=== PATIENT | female | born 1935 | race Caucasian/White ===

== ENCOUNTER 2021-01-17 05:09 | Emergency (ER) | payer MEDICARE, OTHER, SELFPAY ==
[2021-01-17 05:11] VITALS: BP 130/64; PULSE 104; RESP 18; TEMP 36.7; O2SAT 100; BMI 21.4
--- NOTE | 2021-01-17 05:18 | RAD_ITS ---
STUDY: X-RAY CHEST REASON FOR EXAM: Female, 85 years old. Sob TECHNIQUE: Single AP portable view of the chest. COMPARISON: None. FINDINGS: There is a left upper lobe masslike density measuring 5.0 x 2.0 cm. There is no demonstrated pleural abnormality. Normal size heart. Normal mediastinum and christina. Normal visualized pulmonary arteries. There is atherosclerotic calcification of the aortic arch with tortuosity. Normal visualized thoracic spine. Normal visualized ribs, clavicles, and shoulders. There is no demonstrated abnormality of the visualized soft tissue structures of the upper abdomen. RAD/Chest 1 View (Portable) IMPRESSION: Left upper lobe masslike density measuring 5.0 x 2 cm for which further evaluation is recommended with CT scan of the chest. Findings suspicious for underlying pulmonary emphysema. Electronically Signed: Raya Nesbitt MD at 7:17 EDT Tel , Service support ,
--- NOTE | 2021-01-17 05:18 | RAD_ITS ---
STUDY: X-RAY - LEFT FEMUR REASON FOR STUDY: Female, 85 years old. Injury TECHNIQUE: 4 view(s) of the femur. COMPARISON: None. FINDINGS: Is an acute fracture of the distal femur medial displacement of the distal fragment. The fracture line is within the distal one third shaft there is an 8.44 cm foreshortening or overlap with the distal femur medial to the distal femoral shaft at the fracture site. Degenerative change within the left hip joint. There is soft tissue edema is a joint effusion. There is degenerative change in the left knee joint. RAD/Femur Min 2 Views IMPRESSION: Acute foreshortened displaced fracture of the distal femur. Electronically Signed: Raya Nesbitt MD at 7:19 EDT Tel , Service support ,
--- NOTE | 2021-01-17 05:18 | RAD_ITS ---
STUDY: X-RAY - PELVIS REASON FOR EXAM: Female, 85 years old. Injury TECHNIQUE: One view of the pelvis was obtained. COMPARISON: None. FINDINGS: There is a non-specific bowel gas pattern. There are calcified prostatic calculi. Normal bilateral iliac wings, sacroiliac joints and visualized sacrum. Normal visualized bilateral superior and inferior pubic rami. Normal pubic symphysis. Normal ischial tuberosities. Normal visualized right femoral head. Normal right acetabulum. Normal right hip joint. Normal visualized left femoral head. There is osteoarthritic spur formation of the left acetabular rim. Normal left hip joint. RAD/Pelvis 1 or 2 Views IMPRESSION: Mild degenerative change. No visualized acute fracture. Electronically Signed: Raya Nesbitt MD at 7:20 EDT Tel , Service support ,
[2021-01-17] MEDS: fentaNYL 100 MCG/2 ML Ampul 25 MCG IV ×4 (05:29→09:01)
[2021-01-17 05:34] LABS: Absolute Lymphocyte Count 1.53 X10^3/uL (0.83-4.51); Absolute Neutrophil Count 11.8 X10^3/uL (2.0-7.7); Basophil# 0.13 X10^3/uL; Basophil% 0.8 % (0-1); Eosinophil# 0.64 X10^3/uL; Eosinophils% 4.2 % (0-5); Hematocrit 33.8 % (37-47); Hemoglobin 10.9 g/dL (12.0-15.0); Lymphocyte # 1.53 X10^3/ul (0.83-4.51); Lymphocyte % 9.9 % (19-41); Mean Corp Hgb Conc 32.2 g/dL (32-36); Mean Corpuscular Hgb 30.1 pg (27.0-32.0); Mean Corpuscular Volume 93.4 fL (81-99); Mean Platelet Vol. 9.4 fl (6.2-12.0); Monocyte# 1.05 X10^3/uL; Monocyte% 6.8 % (0-10); NRBC Flagged by Analyzer 0 % (0-5); Neutrophil # 11.82 X10^3/uL (2.7-7.7); Neutrophil % 76.9 % (47-70); Platelet Count 294 K/mm3 (150-450); RBC Distribution Width SD 51.8 fl (35.1-43.9); Red Blood Count 3.62 M/mm3 (4.2-5.4); White Blood Count 15.4 K/mm3 (4.4-11.0)
--- NOTE | 2021-01-17 05:35 | EX.ED.DYSGE1 ---
HPI History of Present Illness Chief Complaint: Lower Extremity Injury Informant: patient and EMS Narrative Narrative: 85-year-old female presenting per EMS. Patient was found on the floor. She does not recall what happened. She has a history of dementia and is under hospice care. She has a deformity to her left lower extremity. She complains of left leg pain. Denies other complaints. [facility] Medical History Dementia Diabetes Home Medications cephalexin 500 mg PO TID 01/17/21 [History Last Taken Unknown] glipizide 2.5 mg PO DAILY 01/17/21 [History Last Taken Unknown] pioglitazone 15 mg PO DAILY 01/17/21 [History Last Taken Unknown] sennosides-docusate sodium [Senexon-S] 1 tab PO DAILY 01/17/21 [History Last Taken Unknown] Allergy/AdvReac Type Severity Reaction Status Date / Time No Known Allergies Allergy Verified 01/17/21 05:20 Social History Smoking Status: Current every day smoker tobacco type: cigarettes ROS ROS ED Review of Systems ROS Unobtainable: due to mental status Constitutional Constitutional ED: Denies fever(s) Cardiovascular Cardiovascular: Denies chest pain Respiratory/Chest Respiratory/Chest: Denies dyspnea Gastrointestinal Gastrointestinal: Denies abdominal pain Musculoskeletal Musculoskeletal: Reports other Details: left leg pain Neurologic Neurologic: Denies headache(s) EXAM Physical Exam Const Vital Signs: 01/17/21 05:11 Temperature 98.1 F Temperature Source Temporal Pulse Rate 104 H Respiratory Rate 18 Blood Pressure 130/64 H Blood Pressure Mean 86 Pulse Ox 100 Oxygen Delivery Method Room Air Positive well nourished and well developed General Appearance ED: well developed HEENT Reports normocephalic and head/scalp atraumatic Negative for trauma Eyes PERRL and EOMs intact bilaterally Neck supple Neck Narrative: no midline tenderness General: Negative for tenderness Chest Wall inspection of chest normal Resp normal respiratory effort and clear to auscultation bilaterally Cardio regular rate and regular rhythm GI non-tender and non-distended Palpation: soft; Negative for guarding or rebound tenderness present no CVA tenderness Extremity Extremity Narrative: deformity left knee/ distal femur. Diffuse tenderness. Dopplerable DP pulse Neuro Sensorium / Orientation: alert Psych mental status grossly normal MDM MDM MDM Narrative Medical decision making narrative: Patient was given fentanyl IV. Femur x-ray shows distal femur fracture. Family arrived. Patient was last seen well 2 hours prior to being found on the floor. She is currently in hospice care for congestive heart failure. The family has discussed this and wishes to proceed with revoking hospice in order to consider surgery. Creatinine is 3.53 with no old for comparison. Chest x-ray shows left upper lobe masslike density. Family was unaware of this finding but patient states she has known about this for several years. Discussed with orthopedics who recommends transfer to tertiary care center. Discussed with [facility] for transfer. Lab Data Attestation: I reviewed the patient's lab results. Labs: Laboratory Results - last 24 hr 01/17/21 01/17/21 05:30 05:30 WBC 15.4 H RBC 3.62 L Hgb 10.9 L Hct 33.8 L MCV 93.4 MCH 30.1 MCHC 32.2 RDW Std Deviation 51.8 H RDW Coeff of Rl 15.0 H Plt Count 294 MPV 9.4 Immature Gran % (Auto) 1.400 H Neut % (Auto) 76.9 H Lymph % (Auto) 9.9 L Mingo % (Auto) 6.8 Eos % (Auto) 4.2 Baso % (Auto) 0.8 Absolute Neuts (auto) 11.8 H Absolute Lymphs (auto) 1.53 Nucleated RBC % 0 Sodium 137 Potassium 4.1 Chloride 101 Carbon Dioxide 23.0 Anion Gap 13 BUN 87 H Creatinine 3.53 H Estim Creat Clear Calc 10.24 Est GFR (MDRD) Af Amer 16 L Est GFR (MDRD) Non-Af 13 L BUN/Creatinine Ratio 24.6 H Glucose 101 Calcium 9.7 Radiography Chest X-Ray - ED: 1 View, Read by ED Physician and Read by Radiologist Diagnostic Testing: Radiology Impression Chest X-Ray 01/17/21 05:18 IMPRESSION: Left upper lobe masslike density measuring 5.0 x 2 cm for which further evaluation is recommended with CT scan of the chest. Findings suspicious for underlying pulmonary emphysema. Electronically Signed: Raya Nesbitt MD at 7:17 EDT Tel , Service support , Femur X-Ray 01/17/21 05:18 IMPRESSION: Acute foreshortened displaced fracture of the distal femur. Electronically Signed: Raya Nesbitt MD at 7:19 EDT Tel , Service support , Pelvis X-Ray 01/17/21 05:18 IMPRESSION: Mild degenerative change. No visualized acute fracture. Electronically Signed: Raya Nesbitt MD at 7:20 EDT Tel , Service support , Discharge Plan Triage Chief Complaint: Lower Extremity Injury ED Provider: Santa Brooks Dx/Rx/DC Orders Clinical Impression: Closed fracture of left distal femur Prescriptions: No Action pioglitazone 15 mg tablet 15 mg PO DAILY RF: 0 sennosides-docusate sodium [Senexon-S] 8.6-50 mg tablet 1 tab PO DAILY RF: 0 glipizide 2.5 mg tablet extended release 24hr 2.5 mg PO DAILY RF: 0 cephalexin 500 mg capsule 500 mg PO TID RF: 0 Primary Care Provider: Verónica Sharpe ORIGINATION SPECIALIST Referrals: Verónica Sharpe ORIGINATION SPECIALIST, ORIGINATION SPECIALIST-C [Primary Care Provider] - Disposition Disposition: Acute Care Hospital Discharge Location: [facility]
[2021-01-17 05:49] LABS: Anion Gap 13 (5-15); BUN 87 mg/dL (7-18); BUN/Creat Ratio 24.6 RATIO (10-20); Calcium,Total 9.7 mg/dL (8.5-10.1); Chloride 101 mmol/L (98-107); Creatinine, Serum 3.53 mg/dL (0.55-1.02); EST Glomerular Filtration Rate 13 mL/min (>60); Est Glom Filt Rate - Afr Amer 16 mL/min (>60); Estimated Creatinine Clearance 10.24 ml/min; Glucose 101 mg/dL (74-106); Potassium 4.1 mmol/L (3.5-5.1); Sodium Level 137 mmol/L (136-145)
--- NOTE | 2021-01-17 06:04 | ED.RN ---
hospice contacted about patient condition at this time. they are going to contact family at this time
--- NOTE | 2021-01-17 07:24 | NURSING ---
DR SRIDHAR TRUJILLO
--- NOTE | 2021-01-17 07:59 | NURSING ---
CALLING [facility] FOR TRANSFER. GOING ER TO ER
--- NOTE | 2021-01-17 08:09 | NURSING ---
CALLED [facility], TALKED TO ART. ETA IS 30 TO 45 MIN
[2021-01-17 08:16] VITALS: BP 157/66; PULSE 89; RESP 16; O2SAT 96
[2021-01-17 09:21] VITALS: BP 157/66; PULSE 87; RESP 18; O2SAT 100
== END 2021-01-17 09:25 | disposition short-term general hospital (02) ==
PROVIDERS: Emergency Provider Emergency Medicine; PCP Nurse Practitioner
DX: S72.402A Unspecified fracture of lower end of left femur, initial encounter for closed fracture (principal); F17.210 Nicotine dependence, cigarettes, uncomplicated; E11.9 Type 2 diabetes mellitus without complications; Z79.899 Other long term (current) drug therapy; Z79.84 Long term (current) use of oral hypoglycemic drugs; X58.XXXA Exposure to other specified factors, initial encounter
CPT/HCPCS: 71045; 72170; 73552; 80048; 85025; 96374; 96376; 99285; A4216